=== PATIENT | female | born 1960 | race Caucasian/White ===

== ENCOUNTER → 2018-08-19 | Outpatient (CLI) | payer MEDICARE, BC ==
[~2018-08-19] MED LIST: ATIVAN0.5 MG PO; CELEXA 20 MG TA20 M1 PO; CIPROFLOXACIN500 M3 PO; GLUCOPHAGE500 MG; LANTUS SUBQ; LEVAQUIN 750 M750 MG PO; LISINOPRIL10 MG PO; NOVOLIN R100 UNIT/1; TAMSULOSIN HCL0.4 M1 PO
[2018-08-19 18:07] LABS: IgA 305 mg/dL (87-352); IgG 659 mg/dL (700-1600); IgM 98 mg/dL (26-217)
== END ==
LOC: M.LAB 12:48
PROVIDERS: Psychiatry & Neurology Neuromuscular Medicine
DX: G62.9 Polyneuropathy, unspecified (principal); R51 Headache; R53.83 Other fatigue

== ENCOUNTER → 2018-08-24 | Outpatient (CLI) | payer MEDICARE, BC | LOC: M.MRI 17:04 | DX: R90.82 White matter disease, unspecified (principal); R51 Headache; G62.9 Polyneuropathy, unspecified; R53.83 Other fatigue ==

== ENCOUNTER → 2018-09-14 | Outpatient (CLI) | payer MEDICARE, BC ==
--- NOTE | 2018-09-14 16:15 | 2DMMODE ---
[place] [address] 2 D/M-MODE ECHOCARDIOGRAM Name: JOSE BERG Room: [facility]#: [id number] Admission: 09/14/18 Attend Phys: Rei Lopez MD Discharge: Date of : 58 Date of Service: 09/14/18 1615 Report #: [id number] THIS REPORT FOR: //name// APPROVED REPORT Study performed: 09/14/2018 14:51:27 EXAM: Comprehensive 2D, Doppler, and color-flow Echocardiogram Patient Location: Out-Patient Status: routine BSA: 1.93 HR: 81 bpm BP: 120/70 mmHg Other Information Study Quality: Good Indications Hypertension/HDD ABN MRI 2D Dimensions IVSd: 14.57 (7-11mm) LVOT Diam: 19.99 (18-24mm) LVDd: 48.78 mm PWd: 11.66 (7-11mm) Ascending Ao: 30.55 (22-36mm) LVDs: 31.06 (25-40mm) Aortic Root: 29.62 mm Volumes Left Atrial Volume (Systole) LA ESV Index: 18.60 mL/m2 Aortic Valve AoV Peak Luis.: 1.59 m/s AO Peak Gr.: 10.10 mmHg LVOT Max P.25 mmHg AO Mean Gr.: 5.67 mmHg LVOT Mean P.71 mmHg LVOT Max V: 0.90 m/s AO V2 VTI: 34.21 cm LVOT Mean V: 0.61 m/s RADHA (VTI): 1.91 cm2 LVOT V1 VTI: 20.80 cm Mitral Valve E/A Ratio: 0.94 MV Decel. Time: 223.77 ms MV E Max Luis.: 0.85 m/[place] [address] 2 D/M-MODE ECHOCARDIOGRAM Name: JOSE BERG Room: [facility]#: [id number] Admission: 09/14/18 Attend Phys: Rei Lopez MD Discharge: Date of : 58 Date of Service: 09/14/18 1615 Report #: [id number] PHT: 64.89 ms MVA (PHT): 3.39 cm2 TDI E/Lateral E': 8.50 E/Medial E': 7.73 Medial E' Luis.: 0.11 m/s Lateral E' Luis.: 0.10 m/s Pulmonary Valve PV Peak Luis.: 1.23 m/s PV Peak Gr.: 6.04 mmHg Left Ventricle The left ventricle is normal size. There is normal LV segmental wall motion. Mild concentric left ventricular hypertrophy. Left ventricular systolic function is normal. LVEF is 55-60%. Grade I - abnormal relaxation pattern. Right Ventricle The right ventricle is normal size. The right ventricular systolic function is normal. Atria The left atrium size is normal. The right atrium size is normal. Aortic Valve The aortic valve is normal in structure. No aortic regurgitation is present. There is no aortic valvular stenosis. Mitral Valve The mitral valve is normal in structure. Mild mitral regurgitation. No evidence of mitral valve stenosis. Tricuspid Valve The tricuspid valve is normal in structure. There is no tricuspid valve regurgitation noted. Pulmonic Valve The pulmonary valve is normal in structure. There is no pulmonic valvular regurgitation. Great Vessels The aortic root is normal in size. IVC is normal in size and collapses >50% with inspiration[place] [address] 2 D/M-MODE ECHOCARDIOGRAM Name: JOSE BERG Room: [facility]#: [id number] Admission: 09/14/18 Attend Phys: Rei Lopez MD Discharge: Date of : 58 Date of Service: 09/14/18 1615 Report #: [id number] There is no pericardial effusion. <Conclusion> The left ventricle is normal size. Mild concentric left ventricular hypertrophy. Left ventricular systolic function is normal. LVEF is 55-60%. Grade I - abnormal relaxation pattern. Mild mitral regurgitation. IVC is normal in size and collapses >50% with inspiration. <ELECTRONICALLY SIGNED> By: Zhang Ceballos MD, FACC 09/14/18 1615 14 14 Zhang Ceballos MD, FACC /INF
== END ==
LOC: M.CRD 09-03 10:14
DX: I13.10 Hypertensive heart and chronic kidney disease without heart failure, with stage 1 through stage 4 chronic kidney disease, or unspecified chronic kidney disease (principal); N18.9 Chronic kidney disease, unspecified; I34.0 Nonrheumatic mitral (valve) insufficiency; R42 Dizziness and giddiness; R51 Headache; R53.83 Other fatigue; G62.9 Polyneuropathy, unspecified; R93.0 Abnormal findings on diagnostic imaging of skull and head, not elsewhere classified

== ENCOUNTER 2018-09-20 10:33 | Inpatient (IN) | payer MEDICARE, BC ==
[2018-09-20] VITALS (11 sets, daily range): BP systolic 97–194; BP diastolic 51–89
[~2018-09-20] VITALS: Ht 170.2 cm; Wt 76.7 kg
[~2018-09-20 10:33] MED LIST changes: -TAMSULOSIN HCL0.4 M1 PO; +TAMSULOSIN HCL0.4 MG PO
[2018-09-20] MEDS ORDERED: SERTRALINE HCL50 MG PO (10:46)
[2018-09-20] MEDS ORDERED: LIPITOR 20 MG T20 M1 PO (10:46)
[2018-09-20] MEDS ORDERED: ASPIRIN325 PO (10:46)
[2018-09-20] MEDS ORDERED: LASIX 40 MG TAB40 M2 PO (10:46)
[2018-09-20] MEDS ORDERED: DOXEPIN 10 MG C10 MG PO (10:47)
[2018-09-20] MEDS ORDERED: NEPHROCAPS SOFT1 CAP PO (10:47)
[2018-09-20] MEDS ORDERED: OMEPRAZOLE20 M2 PO (10:47)
[2018-09-20 11:06] LABS: ABSOLUTE BASOPHILS 0.1 thou/uL (0.0-0.2); ABSOLUTE EOSINOPHILS 0.2 thou/uL (0.0-0.7); ABSOLUTE LYMPHOCYTES 2.3 thou/uL (0.8-5.3); ABSOLUTE MONOCYTES 0.3 thou/uL (0.0-1.2); ABSOLUTE NEUTROPHILS 3.4 thou/uL (1.6-8.1); BASOPHILS 0.9 %; EOSINOPHILS 3.5 %; HEMATOCRIT 36.1 % (37.0-47.0); HEMOGLOBIN 12.2 gm/dL (12.0-15.0); LYMPHOCYTES 36.5 %; MCH 31.1 pg (26.0-34.0); MCHC 33.7 g/dL (28.0-37.0); MCV 92.2 fL (80.0-100.0); MONOCYTES 4.9 %; MPV 7.5 fl. (7.2-11.1); NUCLEATED RBCS 0 /100WBC; PLATELET COUNT* 182 thou/uL (150-400); POLYS 54.2 %; RBC 3.91 mil/uL (4.20-5.00); RDW-CV 14.7 % (10.5-14.5); WBC 6.4 thou/uL (4.0-11.0)
[2018-09-20 11:17] LABS: ANION GAP 13 mmol/L (7-16); BUN 55 mg/dL (7-18); CALCIUM 8.7 mg/dL (8.5-10.1); CHLORIDE 104 mmol/L (98-107); CO2 26 mmol/L (21-32); GLUCOSE 85 mg/dL (70-99); POTASSIUM 3.9 mmol/L (3.5-5.1); SODIUM 143 mmol/L (136-145)
[2018-09-20 11:18] LABS: APTT 26.1 Seconds (25.0-31.3); PROTIME 9.8 Seconds (9.20-11.50)
[2018-09-20 11:27] LABS: ALBUMIN 2.6 g/dL (3.4-5.0); ALKALINE PHOSPHATASE 98 U/L (46-116); LIPASE 276 U/L (73-393); NT-PRO BRAIN NAT PEPTIDE 4430 pg/mL (<300); SGOT 23 U/L (15-37); SGPT 31 U/L (30-65); TOTAL BILIRUBIN 0.2 mg/dL (<0.1-1.0); TOTAL PROTEIN 6.8 g/dL (6.4-8.2); TROPONIN-I LEVEL <0.06 ng/mL (<0.06)
[2018-09-20] MEDS ORDERED: HUMALOG100 UNIT/1 SUBQ (11:46)
--- NOTE | 2018-09-20 12:07 | NUR ---
TAD NOTIFIED UPON PT RETURN FROM CT. PT CONNECTED TO MONITOR
[2018-09-20 13:14] LABS: MAGNESIUM 2.4 mg/dL (1.8-2.4); PHOSPHORUS* 6.9 mg/dL (2.5-4.9)
--- NOTE | 2018-09-20 15:46 | EKG ---
[place] [address] ELECTROCARDIOGRAM REPORT Name: JOSE BERG Room: [address] ADM IN .R.#: [id number] Admission: 09/20/18 Attend Phys: Felix Alfaro MD Discharge: Date of : 58 Report #: [id number] THIS REPORT FOR: //name// [facility] ED Test Date: 2018-09-20 Test Time: 10:39:20 Pat Name: JOSE BERG Department: Room: [facility] Gender: F National Insurance Officer: MARTA : 1960 Requested By: Nava Mccollum Order Number: [id number] : Hernesto Winter Measurements Intervals [place] Rate: 63 P: 76 DC: 53 QRS: 35 QRSD: 103 T: 49 QT: 525 QTc: 538 Interpretive Statements Sinus rhythm Prolonged QT interval Compared to ECG 01/03/2013 00:20:18 Prolonged QT interval now present Sinus tachycardia no longer present Electronically Signed On 09-20-2018 15:46:23 TONG HOOKER by Hernesto Winter [email or web address] <ELECTRONICALLY SIGNED> By: Hernesto Winter MD, [facility] 09/20/18 1546 1039 1039 Hernesto Winter MD, [facility] /EPI
--- NOTE | 2018-09-20 16:10 | NUR ---
PT ARRIVED FROM ER. BLOOD GLUCOSE 101. THEN RE-CHECKED AND 65. DEXTROSE 25GRAMS ADMINISTERED PER ICU PROTOCOL. VSS. TRACING SR. REPORTS PT FELL THIS MORNING WHEN SHE WENT UNRESPONSIVE. PT DID NOT HAVE DIALYSIS TODAY. DIALYSIS ORDERED BY NEPHROLOGY. PT A/O X'S 4. PT VOIDED 200ML PER BED BEJARANO. AND DAUGHTER LORRAINE AT BEDSIDE. DISCUSSED ADVANCE DIRECTIVES AND DPOA, REPORTS HE IS INTERESTED IN INFORMATION ON THESE TOPICS THIS HOSPITAL STAY.
--- NOTE | 2018-09-20 18:55 | NUR ---
RECTAL TEMP OBTAINED PT 94.0. BEAR HUGGER APPLIED. DR CALVILLO NOTIFIED. BLOOD GLUCOSE CHECKED EVERY 1 TO 2 HOURS. 25 GRAMS OF DEXTROSE GIVEN 2 TIMES THIS SHIFT. PT VOMITTING DURING DIALYSIS. ZOFRAN ADMININSTERED PER EMAR. REPORTS RECENTLY DURING DIALYSIS PT HAS BEEN HAVING EPISODES OF EMESIS AND MIGRAINES LASTING HOURS. THIS WAS RELAYED TO DIALYSIS AND DIALYSIS SPOKE TO FRANCISCO J AT [facility] TO RECEIVED INFORMATION ABOUT PT DIALYSIS.
[2018-09-21] VITALS (12 sets, daily range): BP systolic 103–151; BP diastolic 45–96
[2018-09-21 01:14] LABS: URINE BILIRUBIN NEGATIVE (Negative); URINE BLOOD 1+ (Negative); URINE CLARITY CLEAR; URINE COLOR YELLOW; URINE GLUCOSE-RANDOM 1+ (Negative); URINE KETONES NEGATIVE (Negative); URINE LEUKOCYTES-REFLEX NEGATIVE (Negative); URINE NITRITE-REFLEX NEGATIVE (Negative); URINE PROTEIN 3+ (Negative); URINE UROBILINOGEN 0.2 E.U./dl (0.2-1.0)
[2018-09-21 01:37] LABS: SQUAMOUS 4-10 Moderate /LPF (0-3)
[2018-09-21 01:38] LABS: BACTERIA-REFLEX 1-9 Few /HPF (None Seen); CASTS None Seen /LPF (None Seen); CRYSTALS None Seen /LPF (None Seen); URINE RBC 0-2 Rare /HPF (0-2); URINE WBC-REFLEX 0-5 Rare /HPF (0-5)
[2018-09-21 02:11] LABS: GLYCOHEMOGLOBIN (HGB A1C) 10.9 % (4.8-5.6)
[2018-09-21 04:28] LABS: CALCIUM 7.9 mg/dL (8.5-10.1); MAGNESIUM 1.7 mg/dL (1.8-2.4); POTASSIUM 4.5 mmol/L (3.5-5.1)
[2018-09-21 04:38] LABS: ABSOLUTE BASOPHILS 0.1 thou/uL (0.0-0.2); ABSOLUTE EOSINOPHILS 0.1 thou/uL (0.0-0.7); ABSOLUTE LYMPHOCYTES 2.3 thou/uL (0.8-5.3); ABSOLUTE MONOCYTES 0.6 thou/uL (0.0-1.2); ABSOLUTE NEUTROPHILS 5.2 thou/uL (1.6-8.1); BASOPHILS 0.6 %; CREATININE 3.4 mg/dL (0.6-1.3); EOSINOPHILS 1.2 %; HEMOGLOBIN 10.7 gm/dL (12.0-15.0); LYMPHOCYTES 28.3 %; MCH 31.7 pg (26.0-34.0); MCHC 34.5 g/dL (28.0-37.0); MCV 91.7 fL (80.0-100.0); MONOCYTES 7.2 %; MPV 7.9 fl. (7.2-11.1); NUCLEATED RBCS 0 /100WBC; PLATELET COUNT* 192 thou/uL (150-400); POLYS 62.7 %; RBC 3.38 mil/uL (4.20-5.00); RDW-CV 14.7 % (10.5-14.5); WBC 8.3 thou/uL (4.0-11.0)
--- NOTE | 2018-09-21 06:35 | NUR ---
REPORT RECEIVED FROM OFF GOING SHIFT AND CARE ASSUMMED. PT BECAME NAUSEATED DURING FIRST PART OF SHIFT WITH DIALYSIS. PT HAS HX OF CERTAIN DIALYSISING SOLUTIONS MAKING HER SICK ENTEROSTOMAL THERAPY NURSE STATED WAS TRYING TO GET CORRECT SOLUTION FOR NEXT TREATMENT. VSS AND NO ACUTE CHANGES DURING SHIFT. MONITORS INTACT AND ALARMS SET.PT HAS HAD A GOOD NIGHT. BLOOD SUGARS STABALIZED DURING SHIFT, WILL CONTINUE TO MONITOR.
--- NOTE | 2018-09-21 11:00 | NUR ---
SPOKE WITH PT. PT HAS BEEN ON HEMODIALYSIS SINCE DECEMBER 2017. SHE SAID SHE HAS HAD CONTINUED PROBLEMS WITH MIGRAINES, NAUSEA AND VOMITING AFTER DIALYSIS. THIS IMPROVED SOME RECENTLY, SOUNDS LIKE A CHANGE IN THE BRAND OF DIALYZER AT THE DIALYSIS UNIT. PT SAID SHE HAS BEEN REGULATING HER INSULIN AT HOME BASED ON HOW SHE FEELS, SHE SAID SHE USUALLY CAN'T EAT ANYTHING THE REST OF THE DAY AFTER DIALYSIS, SO SHE WON'T TAKE ANY INSULIN. IF SHE FEELS LIKE SHE IS GOING TO BE ABLE TO EAT A FULL MEAL THEN SHE WILL TAKE A FULL DOSE OF INSULIN. PT SAID SHE ALSO HAS DIFFICULTY WITH HER VISION, SHE NEEDS CATARACT SURGERY BUT HASN'T FELT LIKE TRYING TO SET THAT UP AROUND HER DIALYSIS AND OTHER DR APPTS. SHE SAID NOW THE DR IS SUGGESTING SHE SEE AN BENCH MECHANIC, 'I HAVE SO MANY DOCTORS, I DON'T KNOW THAT I AM UP TO HAVING TO GO SEE YET ANOTHER ONE.' PT TEARFUL AT TIMES DURING THE CONVERSATION, SAID SHE WANTS TO GET TO FEELING BETTER. PT DIALYZES AT [facility], AT 10:30. HER DRIVES HER TO DIALYSIS. PT PLANS ON RETURNING HOME WITH HER . DISCUSSED ROLE OF CASE MGT, WILL CONTINUE TO FOLLOW.
--- NOTE | 2018-09-21 16:15 | NUR ---
PATIENT TRANSFERRED UP FROM ICU. REPORT RECEIVED FROM RONALDO SPANGLER. NO COMPLAINTS OF PAIN. IV DEWAYNE. FLORES NEWELL/HS.
[2018-09-22] VITALS: BP 138/62
[2018-09-22 04:02] VITALS: BP 162/71
[2018-09-22 04:29] LABS: ABSOLUTE BASOPHILS 0.1 thou/uL (0.0-0.2); ABSOLUTE EOSINOPHILS 0.2 thou/uL (0.0-0.7); ABSOLUTE MONOCYTES 0.6 thou/uL (0.0-1.2); ABSOLUTE NEUTROPHILS 2.6 thou/uL (1.6-8.1); BASOPHILS 1.5 %; EOSINOPHILS 3.7 %; HEMATOCRIT 32.2 % (37.0-47.0); HEMOGLOBIN 10.7 gm/dL (12.0-15.0); LYMPHOCYTES 45.7 %; MCH 31.4 pg (26.0-34.0); MCHC 33.3 g/dL (28.0-37.0); MCV 94.3 fL (80.0-100.0); MONOCYTES 8.7 %; NUCLEATED RBCS 0 /100WBC; PLATELET COUNT* 183 thou/uL (150-400); POLYS 40.4 %; RBC 3.41 mil/uL (4.20-5.00); WBC 6.5 thou/uL (4.0-11.0)
[2018-09-22 04:34] LABS: CALCIUM 8.2 mg/dL (8.5-10.1); POTASSIUM 5.2 mmol/L (3.5-5.1)
--- NOTE | 2018-09-22 06:54 | NUR ---
PATIENT SLEPT MOST OF THE NIGHT. IV REMAINS SALINE LOCKED. PATIENT HAD NO COMPLAINTS OF PAIN. PATIENT IS POSSIBLY DISCHARGING TODAY. WILL CONTINUE TO MONITOR.
[2018-09-22 07:40] VITALS: BP 157/70
[2018-09-22 15:30] VITALS: BP 161/73
--- NOTE | 2018-09-22 16:37 | NUR ---
PATIENT HAD DIALYSIS IN THE AM. AM MEDS HELD AND GIVEN AFTER DIALYSIS. THRILL PALPATED AND BRUIT HEARD DURING AM ASSESSMENT. 3L REMOVED VIA DIALYSIS. RIGHT FA IV DC'D PATIENT COMPLAINED OF PAIN DURING FLUSHING WITH NS. NEW IV STARTED ON RIGHT FA AND FLUSHES [place] DIFFICULTIES. PATIENT GIVEN 4 UNITS ON INSULIN AFTER DIALYSIS VIA BLOOD GLUCOSE OF 119. PATIENT RESTING IN BED. PRN TYLENOL GIVEN THIS EVENING FOR HEADACHE.
[2018-09-23] VITALS (7 sets, daily range): BP systolic 121–155; BP diastolic 59–89
--- NOTE | 2018-09-23 11:48 | NUR ---
Following for d/c planning needs. Pt said she is unsure re: insurance coverage for referral to service station helper. Explained that Medicare has coverage for office visits. Pt does not have her insurance card with her. Pt given information to follow up with endocrinology group in [place]. No other d/c needs indicated.
[2018-09-23] MEDS ORDERED: HUMALOG100 UNIT/1 SUBQ (12:27)
--- NOTE | 2018-09-23 14:01 | NUR ---
LIFT BUILDER WHOLE SPOKE TO THE PATIENT TO DISCUSS DISCHARGE PLANNING NEEDS AND HH AT D/C. PATIENT IN AGREEMENT AND ACCEPTS HH. PATIENT REQUEST HH WITH [facility]. D/C CONTROL VALVE MECHANIC SPOKE TO INTAKE WITH [facility] TO INFORM OF THE REFERRAL AND FAXED THE PATIENT'S FACESHEET, H&P, AND D/C SUMMARY TO [facility]. CM WILL REMAIN AVIALABLE TO ASSIST AND FOLLOW NEEDED.
--- NOTE | 2018-09-23 14:26 | NUR ---
PATIENT DISCHARGED TO HOME WITH HOME HEALTH. DISCHARGE PAPERS REVIEWED AND SIGNED. INFORMATION GIVEN ON DIABETIC DIET. NO PRESCRIPTIONS. IV REMOVED. PATIENT DENIES ANY FURTHER NEEDS. PATIENT TAKEN BY WHEELCHAIR TO EXIT. LEFT WITH .
--- NOTE | 2018-10-05 15:54 | CON ---
[address] [address] CONSULTATION Name: JOSE BERG Room: [address] IN .R.#: [id number] Admission: 09/20/18 Attend Phys: Felix Alfaro MD Discharge: 09/23/18 Date of : 58 Report #: [id number] THIS REPORT FOR: //name// CC: Stephon Alfaro DATE OF SERVICE: 09/21/2018 REQUESTING PHYSICIAN: Dr. Alfaro REASON FOR CONSULTATION: Assist in providing dialysis. HISTORY OF PRESENT ILLNESS: The patient is a very pleasant 58-year-old lady with medical history significant for end-stage renal disease due to diabetic nephropathy, been on dialysis less than a year. She has history of diabetes mellitus type 2 and history of hypertension. She presents to the hospital due to persistent hypoglycemia. Apparently, she was found minimally responsive by her . Blood sugar was checked and it was 32, so she was brought here. Her dialysis days are Thursday, Thursday, and Thursday, and she did have her dialysis yesterday. PAST MEDICAL HISTORY: As I mentioned earlier. SOCIAL HISTORY: No tobacco or alcohol abuse. She has a very supportive family. FAMILY HISTORY: Positive for diabetes and hypertension. MEDICATIONS PRIOR TO ADMISSION: Reviewed. REVIEW OF SYSTEMS: She feels much better now. No more confusion. She is not hypoglycemic anymore. No chest pain, no fever, no chills. She does have decreased urine output, but that is typical for people who are on dialysis. Rest of the systems was reviewed and negative. PHYSICAL EXAMINATION: GENERAL: Awake, alert, oriented. VITAL SIGNS: Blood pressure 123/51, heart rate is 83, afebrile. HEENT: Pupils are round. NECK: Supple. LUNGS: Clear. CARDIOVASCULAR: Regular rate. ABDOMEN: Soft. EXTREMITIES: Lower extremities with no edema. She has left upper arm AV graft. Her chronic dialysis is at [facility] [place] [address] CONSULTATION Name: JOSE BERG Room: [address]#: [id number] Admission: 09/20/18 Attend Phys: Felix Alfaro MD Discharge: 09/23/18 Date of : 58 Report #: [id number] ASSESSMENT: 1. End-stage renal disease, on Thursday, Thursday, and Thursday dialysis. 2. Hypoglycemia. 3. Diabetes mellitus type 2. 4. Hypertension. PLAN: 1. Dialysis tomorrow. 2. Adjust medications to ensure that she is not hypoglycemic anymore. <ELECTRONICALLY SIGNED> By: Carlos Brenner MD 10/05/18 1554 1058 0006Alexandr Kiya Brenner MD /nt
== END 2018-09-23 14:10 | disposition home health service (06) | DRG 637 ==
LOC: M.ERS 10:33 → M.TBA-ER 12:47 → M.ICU 12:47 → M.3W 09-21 14:39
PROVIDERS: Personal Emergency Response Attendant; ADMIT Family Medicine
PROC: 5A1D70Z Performance of Urinary Filtration, Intermittent, Less than 6 Hours Per Day (ICD-10-PCS; principal; 2018-09-22)
DX: E11.649 Type 2 diabetes mellitus with hypoglycemia without coma (principal); G93.41 Metabolic encephalopathy; I12.0 Hypertensive chronic kidney disease with stage 5 chronic kidney disease or end stage renal disease; E44.0 Moderate protein-calorie malnutrition; N18.6 End stage renal disease; E78.5 Hyperlipidemia, unspecified; E11.22 Type 2 diabetes mellitus with diabetic chronic kidney disease; F32.9 Major depressive disorder, single episode, unspecified; F41.9 Anxiety disorder, unspecified; Z83.3 Family history of diabetes mellitus; Z82.49 Family history of ischemic heart disease and other diseases of the circulatory system; Z87.891 Personal history of nicotine dependence; Z79.4 Long term (current) use of insulin; Z79.82 Long term (current) use of aspirin; Z79.899 Other long term (current) drug therapy; Z99.2 Dependence on renal dialysis; Z68.26 Body mass index [BMI] 26.0-26.9, adult

== ENCOUNTER → 2020-10-15 | Outpatient (CLI) | payer MEDICARE, BC ==
[~2020-10-15] MED LIST changes: +ASPIRIN325 PO; +DOXEPIN 10 MG C10 MG PO; +HUMALOG100 UNIT/1 SUBQ; +LASIX 40 MG TAB40 M2 PO; +LIPITOR 20 MG T20 M1 PO; +NEPHROCAPS SOFT1 CAP PO; +OMEPRAZOLE20 M2 PO; +SERTRALINE HCL50 MG PO
[2020-10-15 16:10] LABS: INR 1.1; PROTIME 11.4 Seconds (9.20-11.50)
== END ==
LOC: M.LAB 15:43
PROVIDERS: ATTEND Internal Medicine Nephrology
DX: D69.6 Thrombocytopenia, unspecified (principal)

== ENCOUNTER → 2020-10-16 | Outpatient (CLI) | payer MEDICARE, BC | LOC: M.LAB 13:44 | PROVIDERS: ATTEND Internal Medicine Nephrology | DX: Z53.9 Procedure and treatment not carried out, unspecified reason (principal) ==

== ENCOUNTER 2021-01-14 15:49 | Inpatient (IN) | payer MEDICARE, BC ==
[~2021-01-14] VITALS: Ht 170.2 cm; Wt 73.7 kg
--- NOTE | ~2021-01-14 | CON ---
[address] [address] CONSULTATION Name: JOSE BERG Room: [address] IN M.R.#: [id number] Admission: 01/14/21 Attend Phys: Shantel Ahmadi MD Discharge: Date of : 58 Report #: [id number] THIS REPORT FOR: cc: Stephon Moran MD, Bruce D. MD Pervez,Manish HAN ~ DOC #: [id number] Manish Hernandez MD DATE OF CONSULTATION: 01/16/2021 REQUESTING PHYSICIAN: Dr. Rivera. INDICATION FOR CONSULTATION: Large pleural effusion. HISTORY OF PRESENT ILLNESS: The patient is a 60-year-old female with past medical history as mentioned below. This does include a history of end-stage renal disease. She has a history of diabetes as well. The patient is not aware of any previous history of cardiac or respiratory disease. She does have an extensive history of smoking and does provide a clinical history consistent with COPD, but I do not find the diagnosis on her records. The patient was recently admitted to [facility], was subsequently discharged on a medication, which was an antibiotic, she took every other day. This may have been Levaquin, but the name is not available. The patient subsequently was having increasing shortness of breath. She was also having back pain in chest with respiration and coughing and, therefore, she went to her chiropractor who did a chest x-ray. Due to the abnormal chest x-ray, the patient was admitted to this hospital. The patient previously has not been on supplemental oxygen. She initially required 8 liters of oxygen to maintain O2 saturation in the low 90s. There is a large pleural effusion on the right side with a small pleural effusion on the left side. On her CT, there likely are underlying infiltrates as well on the right side. The patient since then has had hemodialysis. She is scheduled for a thoracentesis today. Overall, she still continues to have significant shortness of breath at rest; however, there is improvement compared with yesterday. Currently, she is on 6 liters nasal cannula. On my exam, she does appear to be bronchospastic. She has continued to cough. There is not much sputum. There is no upper respiratory complaints. Interestingly, she does not have swelling of lower extremities at this time, but I did see her after hemodialysis. The patient had considerable diarrhea yesterday at least 7-8 loose bowel movement. This is better today, two loose bowel movements since this morning. Still she is positive for Clostridium difficile. The patient states that she has lack of feeling in her lower extremities due to old neuropathy. She answered to the negative for 12 questions for review of systems, [place] [address] CONSULTATION Name: HERBIELEONARDOHUMAIRA LIWILLIAM YEE Room: [address] IN .R.#: [id number] Admission: 01/14/21 Attend Phys: Shantel Ahmadi MD Discharge: Date of : 58 Report #: [id number] mentioned above. PAST MEDICAL HISTORY: End-stage renal disease, on hemodialysis; diabetes, hyperlipidemia, depression, left AV fistula. There is a clinical history consistent with COPD; however, the patient is not aware of the diagnosis. Recent admission to [facility] with discharge on a medication that she was taking q.48 hours could have been Levaquin. She is wearing a boot in the left leg due to reported left fifth metatarsal fracture. Previous echocardiogram from 2019 for a left ventricular ejection fraction of 55-60% without elevation in right heart pressures. SOCIAL HISTORY: An extensive history of smoking more than a pack a day for several decades, discontinued in 2014. No known history of heavy alcohol use or illegal drug use. CURRENT MEDICATIONS: List in [place] reviewed. HOME MEDICATIONS: List in [place] reviewed. Also see discussion above. ALLERGIES: No known drug allergies. FAMILY HISTORY: Diabetes and hypertension. PHYSICAL EXAMINATION: GENERAL: She is alert, awake and oriented. She appears to be short of breath at rest. She was coughing during my exam. VITAL SIGNS: Pulse of 74 and a blood pressure elevated to 174/73. She is on 6 liters nasal cannula. She is saturating in the mid 90s. She is afebrile with a temperature of 36.9, body mass index 26. HEENT: Normocephalic and atraumatic. Pupils are equal and reactive. There is no throat erythema. Mucous membranes are moist. NECK: Does not show raised JVP asymmetry, mass or lymph nodes. CHEST: Breath sounds are mildly decreased, almost absent on the right side. Breath sounds are heard on the left side with expirations prolonged. I feel that there is underlying bronchospasm that sounds are diminished at the left lung base as well. HEART: Regular. There is no murmur. ABDOMEN: Soft and nontender. EXTREMITIES: Interestingly, there is no swelling. She has reduced sensation in lower extremities, but there is no calf pain. There are some small varicose veins noted. SKIN: However, is dry and intact. NEUROLOGIC: She did move all extremities bilaterally equally and spontaneously with no focal deficit identified. [address] [place] [address] CONSULTATION Name: JOSE BERG Room: [address] IN [facility]#: [id number] Admission: 01/14/21 Attend Phys: Shantel Ahmadi MD Discharge: Date of : 58 Report #: [id number] IMAGING: She had a CT chest without contrast performed yesterday shows a large pleural effusion on the right side. There is a smaller pleural effusion on the left side. There are bilateral infiltrates as well, more right greater than left. There is a perfusion scan done yesterday, which was a limited study. LABORATORY DATA: The lab work is in [place] and this is reviewed. Nasal swab for MRSA is pending. COVID-19 antigen is negative and she had had the vaccine as well. Clostridium difficile is positive. ASSESSMENT AND PLAN: 1. Pleural effusions. Firstly, she appears to be fluid overloaded despite the fact that there is no swelling of lower extremities. Secondly, I suspect that there is a second etiology for the large pleural effusion on the right side as well. This likely is parapneumonic. Underlying malignancy is not ruled out at this time. She is planned for a thoracentesis today, I agree with the same. I will go ahead and repeat a CT chest without contrast after the same is performed and then assess further. 2. Pulmonary infiltrates. There are pulmonary infiltrates noted. Details of antibiotics already administered from [facility], not available at this time. Not fully apparent as to whether these have already been adequately treated or not. I would go ahead and obtain a sputum culture if possible. Nasal swab for MRSA is pending. ID service is on the case. I would therefore defer to ID. Considering that the patient does have Clostridium difficile colitis, discontinuing Levaquin and only continuing Zosyn with or without adding IV vancomycin could be possible considerations. 3. Fluid overload/end-stage renal disease. She is on hemodialysis. Regardless, she does not have swelling of lower extremities, but the CT chest shows fluid overload. They would like to do an echo as well. It is possible that down the line, the patient needs a left-sided thoracentesis also. 4. Chronic obstructive pulmonary disease exacerbation. She appears to be bronchospastic on my exam. I suspect that she has previously undiagnosed COPD. We will continue with nebulized bronchodilators. We will add budesonide via nebulizer. We will add Solu-Medrol. If blood glucose rise as a result, recommend giving her more insulin. 5. Clostridium difficile colitis. Increasing the dose of p.o. vancomycin may be a consideration. As ID is on the case, I would defer to them. 6. Elevated D-dimer. Evaluation for thromboembolic phenomena. Echocardiogram as above. I will also like to do venous Dopplers. Perfusion scan is a limited study. Potentially, as she has end-stage renal disease, we can consider a CTA chest, but she still has some urine output, therefore we will attempt to avoid it if possible. I did not order a CT chest for now. The CT chest, I have ordered, is without contrast. 7. Hypertension. Defer [place] [address] CONSULTATION Name: HERBIEJOSE AGUERO Room: [address] IN [facility].#: [id number] Admission: 01/14/21 Attend Phys: Shantel Ahmadi MD Discharge: Date of : 58 Report #: [id number] MD FUAD Escobar By: 1243 1929AMD bee Armenta
[2021-01-14 16:47] VITALS: BP 142/60
[2021-01-14] MEDS ORDERED: CARVEDILOL12.5 MG PO (16:56)
[2021-01-14] MEDS ORDERED: NORVASC10 MG PO (16:56)
[2021-01-14] MEDS ORDERED: COZAAR 25 MG TA25 M1 PO (16:57)
[2021-01-14] MEDS ORDERED: OMEPRAZOLE40 MG PO (16:57)
[2021-01-14] MEDS ORDERED: ASA81BEC PO (16:59)
[2021-01-14] MEDS ORDERED: PROAIR HFA8.5 GM INH (17:01)
[2021-01-14 17:07] LABS: BE 8.1 mmol/L (-2 to +3); PCO2 49.5 mmHg (35.0-45.0); PO2 104.6 mmHg (75.0-100.0); pH 7.446 (7.340-7.450)
[2021-01-14 17:08] LABS: ABSOLUTE BASOPHILS 0.1 thou/uL (0.0-0.2); ABSOLUTE EOSINOPHILS 0.2 thou/uL (0.0-0.7); ABSOLUTE LYMPHOCYTES 1.1 thou/uL (0.8-5.3); ABSOLUTE MONOCYTES 0.8 thou/uL (0.0-1.2); ABSOLUTE NEUTROPHILS 5.6 thou/uL (1.6-8.1); BASOPHILS 0.7 %; EOSINOPHILS 2.6 %; HEMATOCRIT 31.4 % (37.0-47.0); HEMOGLOBIN 10.4 gm/dL (12.0-15.0); LYMPHOCYTES 14.5 %; MCH 30.9 pg (26.0-34.0); MCHC 33.1 g/dL (28.0-37.0); MCV 93.2 fL (80.0-100.0); MONOCYTES 9.7 %; MPV 7.6 fl. (7.2-11.1); NUCLEATED RBCS 0 /100WBC; PLATELET COUNT* 231 thou/uL (150-400); POLYS 72.5 %; RBC 3.37 mil/uL (4.20-5.00); WBC 7.8 thou/uL (4.0-11.0)
[2021-01-14 17:18] LABS: ANION GAP 3 mmol/L (7-16); BUN 15 mg/dL (7-18); CALCIUM 8.8 mg/dL (8.5-10.1); CHLORIDE 98 mmol/L (98-107); CO2 36 mmol/L (21-32); CREATININE 3.2 mg/dL (0.6-1.3); GLUCOSE 104 mg/dL (70-99); POTASSIUM 3.7 mmol/L (3.5-5.1); SODIUM 137 mmol/L (136-145)
[2021-01-14 17:29] LABS: ALBUMIN 2.6 g/dL (3.4-5.0); ALKALINE PHOSPHATASE 165 U/L (46-116); NT-PRO BRAIN NAT PEPTIDE > 35000 pg/mL (<300); SGOT 16 U/L (15-37); SGPT 9 U/L (30-65); TOTAL BILIRUBIN 0.4 mg/dL (<0.1-1.0); TOTAL PROTEIN 7.5 g/dL (6.4-8.2)
[2021-01-14 20:26] VITALS: BP 154/68
[2021-01-15 01:00] VITALS: BP 136/67
[2021-01-15 04:00] VITALS: BP 127/61
--- NOTE | 2021-01-15 06:25 | NUR ---
NO ACUTE CHANGES THROUGHOUT SHIFT. FULL ASSESSMENT COMPLETED CHARTED. ALL ROUNDINGS COMPLETED, ALL NEEDS MET. PT IS NOW ON 13L HIGH FLOW MI.
[2021-01-15 07:41] VITALS: BP 141/57
--- NOTE | 2021-01-15 08:58 | NUR ---
ASSUMED CARE OF PT THIS AM AROUND 0715- CABLE INSTALLATION MANAGER IN PLACE ORDERED, TRACING SR- UPON ASSESMENT PT NOTED TO BE RESTING IN BED- PT A&O X4- CONT OF B/B, OLIGURIC WITH HEMO DIALYSIS- ASSIST X1 WITH RW FOR TRANSFERS- LCTA/DIMINISHED IN BASES- VSS, O2 SAT 96% ON HF NC- ABD SOFT/ROUND/NON-TENDER, BS X4 QUADS- LAST BM REPORTED 01/14/21- IV NOTED TO RIGHT AC INTACT AND SL, IV ABT GIVEN THIS AM PRESCRIBED- GOOD PO INTAKE NOTED THIS AM WITH BREAKFAST, BS MONITORED ORDERED- PT REPORTS PAIN 11/10 TO RIGHT SIDE WITH COUGHING- CALL LIGHT AND PERSONAL BELONGINGS WITH IN REACH- HOURLY ROUNDS IN PLACE R/T SAFETY/NEEDS- ALL NEEDS MET AT THIS TIME
--- NOTE | 2021-01-15 09:01 | EKG ---
[place] [address] ELECTROCARDIOGRAM REPORT Name: JOSE BERG Room: [address] ADM IN .R.#: [id number] Admission: 01/14/21 Attend Phys: Shantel Ahmadi, Discharge: Date of : 58 Date of Service: 01/14/21 1605 Report #: [id number] THIS REPORT FOR: //name// [facility] ED Test Date: 2021-01-14 Test Time: 16:05:59 Pat Name: JOSE BERG Department: Room: [facility] Gender: F Leasing Sales Consultant: TORRI : 1960 Requested By: Saqib Sow Order Number: [id number] MD: Zhang Ceballos Measurements Intervals [place] Rate: 65 P: 37 [place]: 156 QRS: 35 QRSD: 106 T: 153 QT: 459 QTc: 478 Interpretive Statements Sinus rhythm Nonspecific T wave flattening and inversion, anterior leads Borderline prolonged QT interval Compared to ECG 09/20/2018 10:39:20 T wave abnormalities now present Electronically Signed On 01-15-2021 9:01:07 CDT by Zhang Ceballos [email or web address] <ELECTRONICALLY SIGNED> By: Zhang Ceballos MD, FACC 01/15/21 0901 1605 1605 Zhang Ceballos MD, FAC /EPI
[2021-01-15 11:27] VITALS: BP 168/67
--- NOTE | 2021-01-15 13:30 | NUR ---
Pt is A&O. Resides at home with . Independent. No DME. Hx of [facility]. No hx of SNF. Goal is home at tx, no needs anticipated. Pt is current at [facility] on a MWF schedule, chair time is 1025. CM updated Karma at [facility] and will fax H&P, flowsheets and covid test at tx to [phone]. Anticipate dc in a few days.
[2021-01-15 16:13] VITALS: BP 177/67
[2021-01-15 17:47] LABS: APTT 26.5 Seconds (25.0-31.3); INR 1.2; PROTIME 12.5 Seconds (9.20-11.50)
[2021-01-15 22:00] VITALS: BP 161/75
--- NOTE | 2021-01-15 22:37 | NUR ---
PT ARRIVED BACK ON UNIT FROM DIALYSIS AT APPROX 2030 THIS PM. JOB PLACEMENT OFFICER REPORTED THAT PT HAD 2L REMOVED, AND THAT PT HAD INTRADIALYTIC CRAMPING DURING TREATMENT. PT LEFT UNIT ON 8L HIGH FLOW NC AND WAS RETURNED ON 8L NC WITH SATS IN THE HIGH 90s. PTs BG WAS 54 WHEN SHE ARRIVED ON UNIT, PT HAD A BOX LUNCH AND SOME APPLE JUICE, FOLLOW UP BG IS 70.
[2021-01-16] VITALS: BP 159/53
[2021-01-16 04:00] VITALS: BP 174/73
[2021-01-16 05:15] LABS: HEMATOCRIT 30.6 % (37.0-47.0); HEMOGLOBIN 9.8 gm/dL (12.0-15.0); MCH 30.2 pg (26.0-34.0); MCHC 32.2 g/dL (28.0-37.0); MCV 93.8 fL (80.0-100.0); MPV 7.6 fl. (7.2-11.1); RBC 3.26 mil/uL (4.20-5.00); RDW-CV 16.8 % (10.5-14.5); WBC 7.5 thou/uL (4.0-11.0)
[2021-01-16 05:27] LABS: CALCIUM 8.2 mg/dL (8.5-10.1); CREATININE 3.2 mg/dL (0.6-1.3); POTASSIUM 4.7 mmol/L (3.5-5.1)
--- NOTE | 2021-01-16 06:14 | NUR ---
NO ACUTE CHANGES THROUGHOUT SHIFT. FULL ASSESSMENT COMPLETED CHARTED. ALL ROUNDINGS COMPLETED, ALL NEEDS MET. PT SLEPT MOST OF NIGHT. PT IS STILL ON 8L NC.
--- NOTE | 2021-01-16 07:20 | NUR ---
CHANGE OF SHIFT BEDSIDE REPORT GIVEN PATIENT SEEN AT BEDSIDE, IN BED RESTING ASSUMED PATIENT CARE
[2021-01-16 12:00] VITALS: BP 136/52
--- NOTE | 2021-01-16 13:07 | NUR ---
Cdiff positive. Dialysis today. CM updated Karma at [facility] of cdiff results. Pt has pleural effusion. Will remain inpt for a few days.
--- NOTE | 2021-01-16 15:36 | 2DMMODE ---
[place] [address] 2 D/M-MODE ECHOCARDIOGRAM Name: HERBIELEONARDOHUMAIRA LIWILLIAM YEE Room: [address] ADM IN [place].#: [id number] Admission: 01/14/21 Attend Phys: Shantel Ahmadi, Discharge: Date of : 58 Date of Service: 01/16/21 1535 Report #: [id number] THIS REPORT FOR: cc: Stephon Moran MD, Bruce D. MD Blick,Ke Reid MD [facility] ~ APPROVED REPORT Study performed: 01/16/2021 13:43:18 EXAM: Comprehensive 2D, Doppler, and color-flow Echocardiogram Patient Location: In-Patient Room #: 213 Status: routine BSA: 1.87 HR: 79 bpm BP: 174/73 mmHg Rhythm: NSR Other Information Study Quality: Excellent Indications Dyspnea 2D Dimensions IVSd: 12.27 (7-11mm) LVOT Diam: 19.89 (18-24mm) LVDd: 50.68 mm PWd: 10.42 (7-11mm) Ascending Ao: 33.05 (22-36mm) LVDs: 33.00 (25-40mm) Aortic Root: 28.20 mm Volumes Left Atrial Volume (Systole) LA ESV Index: 41.80 mL/m2 Aortic Valve AoV Peak Luis.: 1.77 m/s AO Peak Gr.: 12.48 mmHg LVOT Max P.62 mmHg AO Mean Gr.: 6.71 mmHg LVOT Mean P.16 mmHg LVOT Max V: 1.29 m/s AO V2 VTI: 33.88 cm LVOT Mean V: 0.82 m/s RADHA (VTI): 2.32 cm2 LVOT V1 VTI: 25.28 [place] [address] 2 D/M-MODE ECHOCARDIOGRAM Name: JOSE BERG Room: [address] IN ..#: [id number] Admission: 01/14/21 Attend Phys: Shantel Ahmadi, Discharge: Date of : 58 Date of Service: 01/16/21 1535 Report #: [id number] Mitral Valve E/A Ratio: 1.22 MV Decel. Time: 213.41 ms MV E Max Luis.: 0.96 m/s MV PHT: 61.89 ms MVA (PHT): 3.55 cm2 TDI E/Lateral E': 12.00 E/Medial E': 13.71 Medial E' Luis.: 0.07 m/s Lateral E' Luis.: 0.08 m/s Pulmonary Valve PV Peak Luis.: 1.16 m/s PV Peak Gr.: 5.42 mmHg Tricuspid Valve RAP Estimate: 5.00 mmHg TR Peak Gr.: 44.70 mmHg RVSP: 49.00 mmHg PA Pressure: 49.00 mmHg Left Ventricle The left ventricle is normal size. There is normal LV segmental wall motion. Borderline concentric left ventricular hypertrophy. Left ventricular systolic function is normal. The left ventricular ejection fraction is within the normal range. LVEF is 55-60%. The left ventricular diastolic function is normal. Right Ventricle The right ventricle is normal size. The right ventricular systolic function is normal. Atria Left atrium is moderately dilated. The right atrium size is normal. Aortic Valve The aortic valve is normal in structure. No aortic regurgitation is present. There is no aortic valvular stenosis. Mitral Valve The mitral valve is normal in structure. Mild mitral regurgitation. No evidence of mitral valve stenosis. Tricuspid Valve The tricuspid valve is normal in structure. Mild tricuspid regurgitation. estimated pa pressure 50 [place] [address] 2 D/M-MODE ECHOCARDIOGRAM Name: JOSE BERG Room: [address] IN ..#: [id number] Admission: 01/14/21 Attend Phys: Shantel Ahmadi, Discharge: Date of : 58 Date of Service: 01/16/21 1535 Report #: [id number] Pulmonic Valve The pulmonary valve is normal in structure. Mild pulmonic regurgitation. Great Vessels The aortic root is normal in size. IVC is normal in size and collapses >50% with inspiration. Pericardium There is no pericardial effusion. Left pleural effusion. <Conclusion> Borderline concentric left ventricular hypertrophy. LVEF is 55-60%. Left atrium is moderately dilated. Mild mitral regurgitation. Mild tricuspid regurgitation. estimated pa pressure 50 mm hg <ELECTRONICALLY SIGNED> By: Ke Guillen MD, [facility] 01/16/21 1535 1535 1535 Ke Guillen MD, FACC /INF
[2021-01-16 15:50] LABS: BF LYMPHOCYTES 50 %; BF POLYS 50 %; BF TISSUE 33 /100 WBC; CLARITY SLIGHTLY HAZY; SOURCE PLEURAL FLUID; TOTAL VOLUME 800 ml
[2021-01-16 15:51] LABS: BF RBC 56978 /mm3; TOTAL CELL COUNT 1488 /mm3
[2021-01-16 16:00] VITALS: BP 148/59
[2021-01-16 20:00] VITALS: BP 157/62
[2021-01-17] VITALS: BP 168/75
[2021-01-17 03:30] VITALS: BP 171/78
[2021-01-17 04:40] LABS: HEMATOCRIT 29.8 % (37.0-47.0); HEMOGLOBIN 9.9 gm/dL (12.0-15.0); MCH 31.2 pg (26.0-34.0); MCHC 33.2 g/dL (28.0-37.0); MCV 93.8 fL (80.0-100.0); MPV 7.8 fl. (7.2-11.1); RBC 3.18 mil/uL (4.20-5.00); RDW-CV 16.4 % (10.5-14.5); WBC 6.1 thou/uL (4.0-11.0)
[2021-01-17 04:47] LABS: CALCIUM 9.2 mg/dL (8.5-10.1); CREATININE 3.5 mg/dL (0.6-1.3); POTASSIUM 5.5 mmol/L (3.5-5.1)
--- NOTE | 2021-01-17 04:52 | NUR ---
ASSUMED CARE OF PT AFTER REPORT AT 1930. PT A&OX4. VSS. PHYSICAL ASSESSMENT COMPLETED AND CHARTED. PT ON O2 AT 3L NC. PT TRACING SR ON TELE. PT DENIES ANY PAIN. MAINTAINED ON SPECIAL CONTACT PRECUATION. FALL PRECAUTIONS IN PLACE. CALL LIGHT WITHIN REACH.
--- NOTE | 2021-01-17 07:20 | NUR ---
CHANGE OF SHIFT BEDSIDE REPORT GIVEN PATIENT SEEN AT BEDSIDE, IN BED RESTING ASSUMMED PATIENT CARE
[2021-01-17 08:00] VITALS: BP 192/79
[2021-01-17 12:35] VITALS: BP 182/72
[2021-01-17 15:46] LABS: BF RBC 15030 /mm3; TOTAL CELL COUNT 863 /mm3
[2021-01-17 15:50] LABS: CLARITY CLOUDY; TOTAL VOLUME 660 ml
[2021-01-17 16:01] LABS: BF LYMPHOCYTES 87 %; BF MONOCYTES 4 %; BF POLYS 9 %; BF TISSUE 30 /100 WBC
[2021-01-17 16:03] LABS: SOURCE PLEURAL FLUID
[2021-01-17 16:31] VITALS: BP 167/61
[2021-01-17 16:46] LABS: SOURCE PLEURAL
[2021-01-17 20:00] VITALS: BP 162/66
[2021-01-18 00:23] VITALS: BP 169/71
[2021-01-18 02:06] LABS: BODY FLUID PH 7.5 (Not Estab.)
[2021-01-18 04:00] VITALS: BP 148/54
[2021-01-18 04:08] LABS: ABSOLUTE MONOCYTES 0.4 thou/uL (0.0-1.2); ABSOLUTE NEUTROPHILS 8.1 thou/uL (1.6-8.1); BASOPHILS 0.3 %; EOSINOPHILS 0.3 %; HEMATOCRIT 31.1 % (37.0-47.0); HEMOGLOBIN 10.2 gm/dL (12.0-15.0); LYMPHOCYTES 10.4 %; MCH 30.4 pg (26.0-34.0); MCHC 32.9 g/dL (28.0-37.0); MCV 92.5 fL (80.0-100.0); MONOCYTES 4.6 %; MPV 7.6 fl. (7.2-11.1); NUCLEATED RBCS 0 /100WBC; PLATELET COUNT* 216 thou/uL (150-400); POLYS 84.4 %; RBC 3.37 mil/uL (4.20-5.00); RDW-CV 17.1 % (10.5-14.5); WBC 9.7 thou/uL (4.0-11.0)
[2021-01-18 04:24] LABS: CALCIUM 9.3 mg/dL (8.5-10.1); MAGNESIUM 2.1 mg/dL (1.8-2.4)
[2021-01-18 04:54] LABS: POTASSIUM 6.6 mmol/L (3.5-5.1)
--- NOTE | 2021-01-18 06:08 | NUR ---
ASSUMED CARE OF PT AFTER REPORT AT 193. PT A&OX4. VSS. PHYSICAL ASSESSMENT COMPLETED AND CHARTED. PT ON O2 AT 2L NC. PT TRACING SR ON TELE. PT UPSTANDBY TO BSC. PT COMPLAINED OF LEFT CHEST & SHOULDER PAIN-MED GIVEN PER MAR. FALL PRECAUTIONS IN PLACE. MAINTAINED OF SPECIAL CONTACT PRECAUTION. FALL PRECAUTIONS IN PLACE. CALL LIGHT WITHIN REACH.
[2021-01-18 08:00] VITALS: BP 162/58
[2021-01-18 12:00] VITALS: BP 176/76
--- NOTE | 2021-01-18 12:46 | NUR ---
Plan dc home today, CM to fax flowsheets, H&P and covid test to [facility]. Vanc script can be called into [facility] at [phone]. CM called pharmacy confirmed that they have the med in stock.
[2021-01-18 15:57] VITALS: BP 153/59
[2021-01-18 17:07] LABS: BODY FLUID PROTEIN 3.4 g/dL (())
--- NOTE | 2021-01-18 18:43 | NUR ---
PATIENT RESTING IN BED. DIALYSIS INFUSING WITH DIALYSIS NURSE IN ROOM. PATIENT TOLERATING WITHOUT COMPLICATIONS. DIALYSIS PORT TO RIGHT ARM. IV TO RIGHT FOREARM, SALINE LOCKED, DRESSING C/D/I. BLOOD SUGARS MONITORED THROUGHOUT SHIFT, INSULING GIVEN ORDERED. CALL LIGHT WITHIN REACH. BED IN LOW/LOCKED POSTION. NO QUESTIONS OR CONCERNS VOICED.
[2021-01-18 21:13] VITALS: BP 150/73
[2021-01-19] VITALS: BP 172/71
[2021-01-19 02:07] LABS: GLYCOHEMOGLOBIN (HGB A1C) 9.5 % (4.8-5.6)
--- NOTE | 2021-01-19 04:47 | NUR ---
PT CDIFF POSITIVE, ALERT AND ORIENTED, ROM AIR, LEFT ARM LIMB ALERT. SINUS RHYTHM ON MONITOR. SHE IS ABLE TO GET UP WITH ASSISTANE TO COMMODE. 1500 ML FLUID RESTRICTION. I EXPLAINED TO HER THAT DR FRANCISCO IS STILL SETTING UP HER CARE AFTER HOSPITALIZATION REGARDING ANTIBIOTICS AND SHE UNDERSTOOD WHY SHE COULD NOT LEAVE THIS SHIFT. SHE WAS COMPLIANT WITH CARE. SHE SLEPT WELL THIS SHIFT. NO REPORTS OF WORSENING OF RESPIRATORY DISTRESS OR DISCOMFORT. WILL CONTINUE TO MONITOR.
[2021-01-19 05:00] VITALS: BP 157/66
[2021-01-19 05:46] LABS: ABSOLUTE EOSINOPHILS 0.3 thou/uL (0.0-0.7); ABSOLUTE LYMPHOCYTES 1.6 thou/uL (0.8-5.3); ABSOLUTE MONOCYTES 0.6 thou/uL (0.0-1.2); ABSOLUTE NEUTROPHILS 3.7 thou/uL (1.6-8.1); BASOPHILS 0.5 %; HEMATOCRIT 27.6 % (37.0-47.0); HEMOGLOBIN 9.1 gm/dL (12.0-15.0); LYMPHOCYTES 24.9 %; MCH 30.2 pg (26.0-34.0); MCHC 32.8 g/dL (28.0-37.0); MCV 91.9 fL (80.0-100.0); MONOCYTES 10.2 %; MPV 7.9 fl. (7.2-11.1); NUCLEATED RBCS 0 /100WBC; PLATELET COUNT* 201 thou/uL (150-400); POLYS 59.4 %; RBC 3.01 mil/uL (4.20-5.00); RDW-CV 16.8 % (10.5-14.5); WBC 6.3 thou/uL (4.0-11.0)
[2021-01-19 07:03] LABS: CALCIUM 8.3 mg/dL (8.5-10.1)
[2021-01-19 07:15] LABS: CREATININE 3.7 mg/dL (0.6-1.3)
[2021-01-19 08:00] VITALS: BP 177/76
[2021-01-19] MEDS ORDERED: CARVEDILOL25 MG PO (12:15)
[2021-01-19] MEDS ORDERED: VANCOMYCIN HCL125 MG PO (12:15)
[2021-01-19] MEDS ORDERED: AUGMENTIN 875-1 EACH PO (12:17)
[2021-01-19] MEDS ORDERED: PREDNISONE 10 M10 M1 PO (12:17)
[2021-01-19 13:53] VITALS: BP 180/63
[2021-01-19 14:22] VITALS: BP 180/63
--- NOTE | 2021-01-19 19:53 | NUR ---
I ASSUMED CARE OF THE PATIENT AT 0700. SHE IS ALERT AND ORIENTED X4 AND IS UP WITH SBA. BED IS IN THE LOW LOCKED POSITION AND CALL LIGHT IS IN REACH. HOURLY ROUNDING IS COMPLETED AND PATIENT NEEDS ARE MET. PAIN IS DENIED. BLOOD GLUCOSE IS MONITORED AND MANAGED WITH INSULIN. SHE D/C'D TO HOME AT 1520 AND UNDERSTANDS THAT SCRIPTS ARE AT PHARMACY. SHE ALSO REFUSED HOME HEALTH SERVICES. IV WAS D/C'D BEFORE DISCHARGE.
[2021-01-20 13:06] LABS: BODY FLUID PH 7.5 (Not Estab.)
[2021-01-21 09:06] LABS: BODY FLUID LDH 195 IU/L (()); BODY FLUID PROTEIN 4.1 g/dL (())
== END 2021-01-19 15:20 | disposition home or self-care (01) | DRG 177 ==
LOC: M.ERS 15:49 → M.2W 18:43 → M.TBA-ER 18:43 → M.2W 20:30
PROVIDERS: Emergency Medicine Emergency Medical Services; Internal Medicine; Internal Medicine Critical Care Medicine; Nurse Practitioner Family; ADMIT Internal Medicine; ATTEND Internal Medicine
PROC: 5A0935A Assistance with Respiratory Ventilation, Less than 24 Consecutive Hours, High Flow/Velocity Cannula (ICD-10-PCS; principal; 2021-01-14)
PROC: 5A0935A Assistance with Respiratory Ventilation, Less than 24 Consecutive Hours, High Flow/Velocity Cannula (ICD-10-PCS; 2021-01-16)
PROC: 0W993ZZ Drainage of Right Pleural Cavity, Percutaneous Approach (ICD-10-PCS; 2021-01-16)
PROC: 0W9B3ZZ Drainage of Left Pleural Cavity, Percutaneous Approach (ICD-10-PCS; 2021-01-17)
PROC: 5A1D70Z Performance of Urinary Filtration, Intermittent, Less than 6 Hours Per Day (ICD-10-PCS; 2021-01-18)
DX: J15.6 Pneumonia due to other Gram-negative bacteria (principal); N18.6 End stage renal disease; J96.01 Acute respiratory failure with hypoxia; I50.31 Acute diastolic (congestive) heart failure; I13.2 Hypertensive heart and chronic kidney disease with heart failure and with stage 5 chronic kidney disease, or end stage renal disease; J44.1 Chronic obstructive pulmonary disease with (acute) exacerbation; J44.0 Chronic obstructive pulmonary disease with (acute) lower respiratory infection; A04.72 Enterocolitis due to Clostridium difficile, not specified as recurrent; J91.8 Pleural effusion in other conditions classified elsewhere; K21.9 Gastro-esophageal reflux disease without esophagitis; R04.0 Epistaxis; E87.5 Hyperkalemia; D64.9 Anemia, unspecified; E11.22 Type 2 diabetes mellitus with diabetic chronic kidney disease; E78.5 Hyperlipidemia, unspecified; F32.9 Major depressive disorder, single episode, unspecified; Z20.822 Contact with and (suspected) exposure to COVID-19; Z87.891 Personal history of nicotine dependence; Z79.4 Long term (current) use of insulin; Z79.899 Other long term (current) drug therapy

== ENCOUNTER → 2021-03-26 | Outpatient (CLI) | payer MEDICARE, BC ==
[~2021-03-26] MED LIST changes: +ASA81BEC PO; +AUGMENTIN 875-1 EACH PO; +CARVEDILOL12.5 MG PO; +CARVEDILOL25 MG PO; +COZAAR 25 MG TA25 M1 PO; +NORVASC10 MG PO; +OMEPRAZOLE40 MG PO; +PREDNISONE 10 M10 M1 PO; +PROAIR HFA8.5 GM INH; +VANCOMYCIN HCL125 MG PO
== END ==
LOC: M.ULTRA 13:02 → M.LAB 13:02 → M.ULTRA 13:30
PROVIDERS: ATTEND Podiatrist
DX: M79.662 Pain in left lower leg (principal); R60.9 Edema, unspecified